=== PATIENT | female | born 1995 | race Caucasian/White ===

== ENCOUNTER 2021-04-21 11:26 | Outpatient (REF) | payer SELFPAY | END 2021-04-21 11:27 | disposition home or self-care (01) | LOC: HO.HAP 11:26 | PROVIDERS: Visit Provider Nurse Practitioner Family | DX: Z13.89 Encounter for screening for other disorder (principal) ==

== ENCOUNTER 2021-10-22 10:19 | Outpatient (REF) | payer BC, SELFPAY ==
--- NOTE | 2021-10-22 16:00 | MHC.AU.AHA ---
Adult Audiological Evaluation Date of Visit: 10/22/21 Reason for Appointment: Audiological re-evaluation to monitor the status of Ms. Durant's hearing loss. 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 She uses hearing aids binaurally. She feels that she has been using the volume control to turn her hearing aids up more often. Previous Hearing Test Results: [facility] [place]- In the right ear, mild conductive hearing loss at 250 Hz, rising to normal hearing from 500-1000 Hz and sloping to a mild to severe sensorineural hearing loss from 1313-1897 Hz. In the left ear, mild conductive hearing loss at 250 Hz, rising to normal hearing from 500-3000 Hz, and sloping to moderately-severe to severe sensorineural hearing loss from 9081-9510 Hz. Medical History: Medical History: Dizziness/unsteadiness. Concussions in 2013 and 2011. Broken arm 2011. Seasonal allergies. Medication List: control, monelukast, zyrtec Hearing Instrument History- Right Ear: Meat Boner And Slicer: PhonRealtimeBoard Model: Alexis Bittareo M50-13T Serial Number: [id number] Battery Size: 13 Repair Warranty: 08/19/2022 Loss and Damage Warranty: 08/19/2022 Dispensed By: [facility] Date of Fittin05/30/2019 Hearing Instrument History- Left Ear: Meat Boner And Slicer: Phonak Model: Alexis Bittareo M50-13T Serial Number: [id number] Battery Size: 13 Warranty: 08/19/2022 Loss and Damage Warranty: 08/19/2022 Dispensed By: [facility] Date of Fittin05/30/2019 Otoscopy: Right Ear: Unremarkable Left Ear: Unremarkable Tympanometry: Tympanometry performed due to: Conductive component found in audiometric results Right Ear: Normal Middle Ear System (Type A) Left Ear: Normal Middle Ear System (Type A) Hearing Evaluation: Transducer(s) Used: Insert Earphones, Bone Conduction Method: Conventional Audiometry Stimuli Used: Pure Tones Right Ear: Description of Hearing: Mild conductive hearing loss at 250 Hz (40 dBHL air-bone gap), rising to normal hearing at 500 Hz (with a 25 dBHL air-bone gap) to 1000 Hz (no air-bone gap), and steeply sloping to a mild to profound sensorineural hearing loss from 9659-2471 Hz. Left Ear: Description of Hearing: Moderate conductive hearing loss at 250 Hz (45 dBHL air-bone gap), rising to normal hearing from 500 Hz (with a 25 dBHL air-bone gap) to 0623-7210 Hz (no air-bone gap), and steeply sloping to a moderately-severe to severe sensorineural hearing loss from 5580-6915 Hz. Speech Recognition Threshold (SRT): Method Used: Monitored Live Voice Stimuli Used: Spondee Words Right Ear: 20 dBHL Left Ear: 15 dBHL Word Discrimination: Method: Recorded Lists Word Lists Used: NU-6 Right Ear: 84% at 80 dBHL Left Ear: 100% at 70 dBHL Comparison: Compared to most recent evaluation: 15 dBHL decrease in hearing in the left ear at 250 Hz. 10 dBHL decrease in hearing from 4861-5078 Hz in the right ear. All other thresholds and word discrimination scores are stable. Recommendations: Audiological re-evaluation in one year. Hearing aid maintenance performed today. Hearing aid(s) reprogrammed with updated test results. Hearing aid data logging shows very low wear time. Recommend consistent use of hearing aids in order to receive full benefit and to fully adjust to hearing aid sound quality. Diagnosis: Primary Diagnosis: H90.6 Mixed Hearing Loss, Bilateral Services Performed: Comprehensive Audiological Evaluation (CPT 56965) Tympanometry (CPT 71026) Signature: Provider: Rosalia Lazcano, [facility]
== END 2021-10-22 10:20 | disposition home or self-care (01) ==
LOC: HO.SH 10:19
PROVIDERS: Visit Provider Nurse Practitioner Family
DX: H90.6 Mixed conductive and sensorineural hearing loss, bilateral (principal)
CPT/HCPCS: 92557; 92567

== ENCOUNTER 2022-11-02 09:33 | Outpatient (REF) | payer SELFPAY ==
--- NOTE | 2022-11-02 10:06 | MHC.AU.HFU ---
Hearing Instrument Follow-Up- Binaural Date of Visit: 11/02/22 Right Ear: Eleonora De La Cruz M50-13T, [id number] Repair Warranty: 08/19/2022 Loss and Damage Warranty: 08/19/2022 Battery Size: 13 Manager Beauty: 0M with retention wire Type of Dome: Medium open dome Type of Wax Guard: Cerushield Dispensed By: [facility] Date of Fittin05/30/2019 Left Ear: Eleonora De La Cruz M50-13T, [id number] Repair Warranty: 08/19/2022 Loss and Damage Warranty: 08/19/2022 Battery Size: 13 Manager Beauty: 0M with retention wire Type of Dome: Medium open Type of Mold: Large open dome Type of Wax Guard: Cerushield Dispensed By: [facility] Date of Fittin05/30/2019 Follow-Up Summary: Doris is here for a hearing aid check. She is wearing her hearing aids more frequently and finds that the left hearing aid pops out of her ear occasionally. She has no retention issues with the right hearing aid. Visual inspection revealed the retention wires were overcurled, so I replaced them bilaterally. I also recommended trying a large dome for the left side. She liked the feel with the large dome. She is now using a large open dome for the left aid, and continues to use a medium open dome for the right aid. She requested a copy of her previous audiogram with report as she is trying to get disability benefits. This was provided. She will let us know if she needs us to fill out any other paperwork. Additional follow-up as needed. Diagnosis Code(s): Primary Diagnosis: H90.6 Mixed Hearing Loss, Bilateral Signature: Provider: Rosalia Sanchez, [facility]
== END 2022-11-02 09:34 | disposition home or self-care (01) ==
LOC: HO.HAP 09:33
PROVIDERS: Visit Provider Nurse Practitioner Family
DX: Z13.89 Encounter for screening for other disorder (principal)